=== PATIENT | female | born 1975 | race Hispanic/Latino ===

== ENCOUNTER → 2023-04-28 | Outpatient (REF) | payer MEDICARE, OTHER | LOC: CT 09:26 | PROVIDERS: ATTEND Nurse Practitioner Family | DX: J30.9 Allergic rhinitis, unspecified (principal); J84.9 Interstitial pulmonary disease, unspecified; G47.33 Obstructive sleep apnea (adult) (pediatric); K21.9 Gastro-esophageal reflux disease without esophagitis | CPT/HCPCS: 71250 ==